=== PATIENT | male | born 1955 | race Caucasian/White ===

== ENCOUNTER 2017-12-26 04:50 | Emergency (ER) | payer BC, MEDICARE ==
[~2017-12-26] VITALS: Ht 167.6 cm; Wt 80.4 kg
[~2017-12-26 04:50] MED LIST: CEPH-376 PO
[2017-12-26] MEDS ORDERED: CIPR500T87 PO (05:00)
[2017-12-26] MEDS ORDERED: ONDA4TAB10 PO (05:00)
[2017-12-26] MEDS ORDERED: METR500T8 PO (05:00)
[2017-12-26] MEDS ORDERED: SODIUM CHLORIDE 0.9% 1,000 ML IV ONE (05:14)
[2017-12-26] MEDS ORDERED: SODIUM CHLORIDE FLUSH 10ML SYR IVF ONE (05:30)
[2017-12-26] MEDS ORDERED: ONDANSETRON 2MG/ML, 2ML IVPush ONE (05:30)
[2017-12-26] MEDS ORDERED: HYDROmorphone 2 MG/ML, 1ML IVPush PRN (05:30)
[2017-12-26] MEDS ORDERED: ONDANSETRON 2MG/ML, 2ML ONE (05:39)
[2017-12-26] MEDS ORDERED: HYDROmorphone 2 MG/ML, 1ML ONE (05:40)
[2017-12-26 05:44] LABS: BASOPHILS # (AUTO) 0.04 x10^3/uL (0-0.1); BASOPHILS % (AUTO) 0 % (0-1); EOSINOPHILS % (AUTO) 0 % (1-7); LYMPHOCYTES # (AUTO) 1.67 x10^3/uL (1-3.4); LYMPHOCYTES % (AUTO) 14 % (22-44); MD NO; MEAN CORPUSCULAR HEMOGLOBIN 30.2 pg (27.5-34.5); MEAN CORPUSCULAR HGB CONC 33.6 g/dL (33.2-36.2); MEAN CORPUSCULAR VOLUME 89.9 fL (81-97); MONOCYTES # (AUTO) 0.83 x10^3/uL (0.2-0.8); MONOCYTES % (AUTO) 7 % (2-9); NEUTROPHILS # (AUTO) 9.64 x10^3/uL (1.8-6.8); NEUTROPHILS % (AUTO) 79 % (42-75); PLATELET COUNT 274 x10^3/uL (130-400); RED BLOOD COUNT 5.37 x10^6/uL (4.38-5.82); RED CELL DISTRIBUTION WIDTH 13.4 % (9.4-14.8)
[2017-12-26 05:55] LABS: ALANINE AMINOTRANSFERASE 26 U/L (12-78); ALBUMIN 3.7 g/dL (3.4-5.0); ANION GAP 8 mmol/L (5-15); CALCIUM 9.2 mg/dL (8.5-10.1); CHLORIDE 107 mmol/L (98-107); CREATININE 1.51 mg/dL (0.7-1.3)
[2017-12-26 05:57] LABS: ALKALINE PHOSPHATASE 73 U/L (45-117); BILIRUBIN,TOTAL 0.6 mg/dL (0.2-1.0); TOTAL PROTEIN 8.4 g/dL (6.4-8.2)
[2017-12-26 06:32] LABS: CULTURE INDICATED? YES; MICROSCOPIC AUTO
[2017-12-26] MEDS ORDERED: OMNIPAQUE 350 MG/ML, 100ML BOTTLE ONE (06:46)
[2017-12-26] MEDS ORDERED: CEFTRIAXONE PMX 1GM/50ML 50 ML IV ONE (07:30)
[2017-12-26] MEDS ORDERED: CEFTRIAXONE PMX 1GM/50ML 50 ML ONE (07:42)
[2017-12-26] MEDS ORDERED: KETOROLAC 30 MG/1 ML IVPush ONE (08:00)
[2017-12-26] MEDS ORDERED: KETOROLAC 30 MG/1 ML ONE (08:03)
[2017-12-26 08:20] VITALS: BP 152/77
== END 2017-12-26 08:59 | disposition home or self-care (01) ==
LOC: ED 06:52
DX: N13.6 Pyonephrosis (principal); R31.9 Hematuria, unspecified; R10.32 Left lower quadrant pain
CPT/HCPCS: 36415; 74177; 80053; 81001; 83690; 85025; 87086; 96365; 96375; 99285; J0696; J1170; J1885; J2405; J7030; Q9967

== ENCOUNTER 2017-12-29 14:16 | Emergency (ER) | payer BC, MEDICARE ==
[~2017-12-29] VITALS: Ht 167.6 cm; Wt 80.9 kg
[~2017-12-29 14:16] MED LIST changes: +CIPR500T87 PO; +METR500T8 PO; +ONDA4TAB10 PO
[2017-12-29 15:15] LABS: BASOPHILS # (AUTO) 0.05 x10^3/uL (0-0.1); BASOPHILS % (AUTO) 0 % (0-1); EOSINOPHILS # (AUTO) 0.21 x10^3/uL (0-0.4); EOSINOPHILS % (AUTO) 2 % (1-7); LYMPHOCYTES # (AUTO) 1.57 x10^3/uL (1-3.4); LYMPHOCYTES % (AUTO) 15 % (22-44); MD NO; MEAN CORPUSCULAR HEMOGLOBIN 30.4 pg (27.5-34.5); MEAN CORPUSCULAR VOLUME 89.4 fL (81-97); MEAN PLATELET VOLUME 8.1 fL (7.4-10.4); MONOCYTES # (AUTO) 0.83 x10^3/uL (0.2-0.8); MONOCYTES % (AUTO) 8 % (2-9); NEUTROPHILS % (AUTO) 75 % (42-75); PLATELET COUNT 276 x10^3/uL (130-400); RED BLOOD COUNT 4.87 x10^6/uL (4.38-5.82)
[2017-12-29 15:29] LABS: ALBUMIN 3.2 g/dL (3.4-5.0); ANION GAP 9 mmol/L (5-15); CALCIUM 8.7 mg/dL (8.5-10.1); CHLORIDE 100 mmol/L (98-107)
[2017-12-29 15:32] LABS: ALANINE AMINOTRANSFERASE 24 U/L (12-78); ALKALINE PHOSPHATASE 64 U/L (45-117); BILIRUBIN,TOTAL 0.4 mg/dL (0.2-1.0); CREATININE 1.26 mg/dL (0.7-1.3); TOTAL PROTEIN 7.9 g/dL (6.4-8.2)
[2017-12-29 15:42] LABS: MICROSCOPIC INDICATED
[2017-12-29] MEDS ORDERED: KETOROLAC 30 MG/1 ML ONE (16:35)
[2017-12-29] MEDS ORDERED: KETOROLAC 30 MG/1 ML IM ONE (17:00)
[2017-12-29 17:05] VITALS: BP 142/76
== END 2017-12-29 17:21 | disposition home or self-care (01) ==
LOC: ED 15:00
DX: N13.2 Hydronephrosis with renal and ureteral calculous obstruction (principal)
CPT/HCPCS: 36415; 74176; 80053; 81001; 85025; 96372; 99285; J1885